=== PATIENT | male | born 2000 | race Caucasian/White ===

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

== ENCOUNTER 2022-10-02 09:53 | Emergency (ER) | payer SELFPAY ==
[2022-10-02 10:00] VITALS: BP 141/77; PULSE 68; RESP 18; TEMP 98; BMI 22.1
[2022-10-02] MEDS ORDERED: KETOROLAC TROMETHAMINE 30 MG/1 ML VIAL IM ONE (10:41)
[2022-10-02] MEDS ORDERED: ACETAMINOPHEN 500 MG TABLET (FP) PO ONE (10:41)
[2022-10-02] MEDS ORDERED: KETOROLAC TROMETHAMINE 30 MG/1 ML VIAL ONE (10:48)
[2022-10-02] MEDS ORDERED: ACETAMINOPHEN 500 MG TABLET (FP) ONE (10:48)
== END 2022-10-02 12:44 | disposition home or self-care (01) ==
LOC: JERFT 09:53
PROC: 3E023GC Introduction of Other Therapeutic Substance into Muscle, Percutaneous Approach (ICD-10-PCS; principal; 2022-10-02)
DX: S69.92XA Unspecified injury of left wrist, hand and finger(s), initial encounter (principal); W01.0XXA Fall on same level from slipping, tripping and stumbling without subsequent striking against object, initial encounter
CPT/HCPCS: 73110-TC-LT-FY; 73130-TC-LT-FY; 99284-25